=== PATIENT | female | born 1955 | race Caucasian/White ===

== ENCOUNTER 2017-05-28 08:44 | Observation (INO) | payer OTHER ==
--- NOTE | 2017-05-27 16:40 | GHP ---
[f rep st] PREOP HISTORY AND PHYSICAL HISTORY: The patient is a 61-year-old female who presents with right knee pain and swelling and valg us malalignment. She has catching and locking. Most of her pain is lateral. She has a sense of ins tability, decreased range of motion, impaired gait, and limping. The right knee has had an arthrosco py, also Supartz injections in 2012. 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 It has caused her right-sided symptoms and weakness. S he uses an AFO for her right ankle. She has some right-sided weakness. Her x-ray shows significant tricompartment osteoarthritis, most notably [id number] in the lateral compartment. A right total k nee arthroplasty is planned. 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 She has weakness of the right side and right lower extremity, AFO for her right ankle. She is hy pothyroid. MEDICATIONS: Levothyroxine 88 mcg daily, and liothyronine 5 mcg tablets p.o. daily. For her bladder , she uses Myrbetriq 50 mg p.o. daily. She uses meloxicam. ALLERGIES: She has sensitivity to codeine, causing a rash. SOCIAL HISTORY: She is a nonsmoker. REVIEW OF SYSTEMS: Positive from the neurologic standpoint for her right-sided stroke and previous c erebellar lesion, right footdrop, as well as hypothyroid. Endocrine standpoint for hypothyroid. PHYSICAL EXAM: GENERAL: The patient is a well-developed, well-nourished female in no apparent distr ess. HEAD AND NECK: Normocephalic, atraumatic. CHEST: Clear. CARDIOVASCULAR: Regular rate and r hythm. ABDOMEN: Soft. NEUROLOGIC: She is alert and oriented x3. EXTREMITIES: Examination of the right knee shows increased valgus alignment. There is an effusion. She has a flexion contracture, and she is flexing about 110 degrees. Ligamentously, the knee is stable. There is lateral joint mellisa e tenderness. She has hamstring weakness but decent quad strength. IMPRESSION: Right knee osteoarthritis and right lower extremity neurologic issues. PLAN: Right total knee arthroplasty. Benefits and risks of surgery have been reviewed. She underst ands that the risks include infection, damage to blood vessel or nerve, failure or loosening of compo nents, blood clot in the leg or lungs, bleeding and need for transfusion. I reviewed the rigorous la falcon of the rehabilitation, and she has signed a consent form and wishes to proceed. /[id number]/MODL
--- NOTE | 2017-05-28 07:17 | PDHPUP ---
History & Physical Update H&P update statement: This history and physical update is based on an assessment of the patient which was completed after admission or registration (within 24 hours), but prior to the surgery/procedure. H&P update: H&P reviewed & patient examined (no change)
[~2017-05-28 08:44] MED LIST: BUPI/epINEPH/KETOROLAC IU ONE; POVIDONE-IODINE 20 ML in SODIUM CL IRRIG SOLUTION 500 ML IRR ONE; ROPIVACAINE 0.2% 80 MG, EPINEPHrine 0.2 MG, KETOROLAC TROMETHAMINE 30 MG in SYRINGE 0 ML IU ONE; TRANEXAMIC ACID 1,000 MG in NS (SYRINGE) 50 ML IV ONE
[2017-05-28] MEDS ORDERED: ceFAZolin 1 GM/5 ML SYR ONE (09:14)
[2017-05-28] MEDS ORDERED: GABAPENTIN 300 MG CAP PO ONE (09:16)
[2017-05-28] MEDS ORDERED: ACETAMINOPHEN 325 MG TAB PO ONE (09:16)
[2017-05-28] MEDS ORDERED: DEXAMETHASONE 4 MG/ML VIAL IVP ONE (09:16)
[2017-05-28] MEDS ORDERED: ceFAZolin 2 GM/SWFI 2 GM/20 ML SYR IVP ONE (09:16)
[2017-05-28] MEDS ORDERED: LR 1,000 ML IV ONE (09:16)
[2017-05-28] MEDS ORDERED: FAMOTIDINE 20 MG TAB PO ONE (09:16)
[2017-05-28] MEDS ORDERED: MIDAZOLAM 2 MG/2 ML VIAL IVP ONE (09:20)
--- NOTE | 2017-05-28 09:20 | PDANEPAE ---
ANE History of Present Illness R TKA ANE Past Medical History - Cardiovascular History Hx Hypertension: No Hx Arrhythmias: No Hx Chest Pain: No Hx Coronary Artery / Peripheral Vascular Disease: No Hx CHF / Valvular Disease: No Hx Palpitations: No - Pulmonary History Hx COPD: No Hx Asthma/Reactive Airway Disease: No Hx Recent Upper Respiratory Infection: No Hx Oxygen in Use at Home: No Hx Sleep Apnea: No Sleep Apnea Screening Result - Last Documented: Negative - Neurologic History Hx Cerebrovascular Accident: Yes Hx Seizures: No Hx Dementia: No Neurologic History Comment: POST BRAIN SURGERY CEREBELLUM AGE 23 - RESIDUAL R SIDED WEAKNESS - Endocrine History Hx Diabetes: Yes Endocrine History Comment: HYPOTHYROID - Renal History Hx Renal Disorders: No Renal History Comment: OCCAS LACK BLADDER CONTROL - Liver History Hx Hepatic Disorders: No - Neurological & Psychiatric Hx Hx Neurological and Psychiatric Disorders: No - Cancer History Hx Cancer: No - Congenital Disorder History Hx Congenital Disorders: No - GI History Hx Gastrointestinal Disorders: No Gastrointestinal History Comment: ACID REFLUX OCCAS - Other Health History Other Health History: NEG - Chronic Pain History Chronic Pain: Yes (R KNEE) - Surgical History Prior Surgeries: BRAIN SURGERY. KALYN BUNIONECTOMIES. R FOOT SMALL TOE SURGERY. R KNEE SCOPE. UTERINE POLYPS. BLADDER REPAIR. TUBAL LIGATION. OVARIAN CYST REMOVAL. CARPAL TUNNEL L ANE Review of Systems Review of systems is: negative Review of Systems: uses mobility assist device, exercises regularly - Exercise capacity METS (RN): 4 METS ANE Patient History - Allergies Allergies/Adverse Reactions: codeine [Codeine] Allergy (Verified 05/17/17 10:34) Rash - Home Medications Home medications: home medication list seen and reviewed Home Medications: Acetaminophen [Tylenol 325mg (*)] 325 mg PO DAILY PRN 05/17/17 [Last Taken Unknown] Levothyroxine [Synthroid 88 mcg (*)] 88 mcg PO DAILY06 05/17/17 [Last Taken Unknown] Liothyronine Sodium [Cytomel 5 mcg (*)] 10 mcg PO DAILY 05/17/17 [Last Taken Unknown] Meloxicam 15 mg PO DAILY 05/17/17 [Last Taken Unknown] Mirabegron [Myrbetriq] 50 mg PO DAILY 05/17/17 [Last Taken Unknown] - NPO status NPO Status: no food or drink >8 hours - Anes Hx Anes Hx: no prior problems - Smoking Hx Smoking Status: Never smoked - Family Anes Hx Family Anes Hx: none Family Hx Anesthesia Complications: NEG ANE Labs/Vital Signs - Vital Signs Height: 177.8 cm Weight: 106.594 kg ANE Physical Exam - Airway Neck exam: FROM Mallampati Score: Class 2 Mouth exam: normal dental/mouth exam - Pulmonary Pulmonary: no respiratory distress - Cardiovascular Cardiovascular: regular rate and rhythym - ASA Status ASA Status: III ANE Anesthesia Plan Anesthesia Plan: MAC, spinal Regional Anesthesia: adductor canal FNB, POPC/PSR
[2017-05-28] MEDS ORDERED: LIDOCAINE 2% 100 MG/5 ML SYR ONE (10:21)
[2017-05-28] MEDS ORDERED: PROPOFOL/EMULSION 500 MG/50 ML BOTTLE IV ONE (10:21)
[2017-05-28] MEDS ORDERED: fentaNYL 100 MCG/2 ML INJ IVP PRN (11:01)
[2017-05-28] MEDS ORDERED: oxyCODONE IR 5 MG TAB PO PRN (11:01)
[2017-05-28] MEDS ORDERED: DEXAMETHASONE 4 MG/ML VIAL IVP PRN (11:01)
[2017-05-28] MEDS ORDERED: MEPERIDINE 25 MG/ML SYR IVP PRN (11:01)
[2017-05-28] MEDS ORDERED: HYDROmorphONE/DILAUDID 1 MG/ML INJ IVP PRN (11:01)
[2017-05-28] MEDS ORDERED: ACETAMINOPHEN 500 MG TAB PO PRN (11:01)
[2017-05-28] MEDS ORDERED: HYDROCODONE/APAP 5/325 TAB PO PRN (11:01)
[2017-05-28] MEDS ORDERED: NALOXONE HCL 0.4 MG/ML INJ IVP PRN (11:01)
[2017-05-28] MEDS ORDERED: ONDANSETRON 4 MG/2 ML VIAL IVP PRN ×2 (11:01→12:23)
--- NOTE | 2017-05-28 11:05 | POSTANESTH ---
Post Anesthetic Evaluation Cardiovascular Status: Normal, Stable, Similar to Pre-Op Cond Respiratory Status: Normal, Stable, Similar to Pre-op Cond. Level of Consciousness/Mental Status: Can Participate in Eval, Mildly Sleepy, Arousable Pain Control: Adequate, Prn Tx Ordered Nausea/Vomiting Control: Adequate, Prn Tx Ordered Complications Possibly Related to Anesthesia: None Noted
[2017-05-28] MEDS ORDERED: ROPIVACAINE HCL 150 MG/30 ML INJ ONE (11:45)
[2017-05-28] MEDS ORDERED: PROPOFOL 200 MG/20 ML VIAL ONE (11:56)
[2017-05-28] MEDS ORDERED: PROMETHAZINE HCL 25 MG/ML INJ IVP PRN (12:23)
[2017-05-28] MEDS ORDERED: MAGNESIUM HYDROXIDE 30 ML UDCUP PO PRN (12:23)
[2017-05-28] MEDS ORDERED: ONDANSETRON DISINTEGRATING 4 MG TAB PO PRN (12:23)
[2017-05-28] MEDS ORDERED: BISACODYL 10 MG SUPP PR PRN (12:23)
[2017-05-28] MEDS ORDERED: KETOROLAC 30 MG/1 ML SDV IVP PRN (12:23)
[2017-05-28] MEDS ORDERED: METOCLOPRAMIDE 10 MG/2 ML VIAL IVP PRN (12:23)
[2017-05-28] MEDS ORDERED: TEMAZEPAM 15 MG CAP PO PRN (12:23)
[2017-05-28] MEDS ORDERED: diphenhydrAMINE 25 MG CAP PO PRN (12:23)
[2017-05-28] MEDS ORDERED: POLYETHYLENE GLYCOL 3350 17 GM PKT PO PRN (12:23)
[2017-05-28] MEDS ORDERED: DIPHENOXYLATE/ATROPINE LOMOTIL 1 TAB PO PRN (12:23)
[2017-05-28] MEDS ORDERED: LACTULOSE 20 GM/30 ML UDCUP PO PRN (12:23)
[2017-05-28] MEDS ORDERED: PROMETHAZINE HCL 25 MG SUPPR PR PRN (12:23)
[2017-05-28] MEDS ORDERED: CYCLOBENZAPRINE 10 MG TAB PO PRN (12:23)
[2017-05-28] MEDS ORDERED: LR 1,000 ML IV SCH (12:30)
--- NOTE | 2017-05-28 12:53 | GOP ---
[f rep st] OPERATIVE REPORT DATE OF OPERATION: 05/28/2017 SURGEON: Doug Abbott MD SUPERVISOR [employer]: Berto Apodaca [facility], [facility] ANESTHESIOLOGIST: Delfin Cotto MD. PREOPERATIVE DIAGNOSIS: Right knee osteoarthritis. POSTOPERATIVE DIAGNOSIS: Right knee osteoarthritis. PROCEDURE PERFORMED: Right total knee arthroplasty. FINDINGS: SPECIMENS: Excised bone was passed off as specimen. ESTIMATED BLOOD LOSS: About 50 cc. INDICATIONS: The patient presents with right knee pain/swelling. Her history, exam, and x-rays are consistent with advanced right knee tricompartment osteoarthritis, most notably the lateral compartme nt, which is [id number]. This impacts her quality of life, activities of daily living, and she has elected to undergo a right total knee arthroplasty. DESCRIPTION OF PROCEDURE: The patient was taken to the operating room. In a seated position on the OR table, Dr. Cotto provided a spinal anesthetic. She was placed supine. She received IV sedatio n. She received her preoperative antibiotics as well as tranexamic acid. A blanket was placed benea th the right hip to neutralize rotation. The right lower extremity was prepped and draped thoroughly with chlorhexidine. The limb was elevated, exsanguinated, the tourniquet inflated to 300 mmHg. I m mera a longitudinal incision in the midline, dissected through subcutaneous tissue. I used a medial p arapatellar arthrotomy, and the patella was inverted. I removed 9 mm of cartilage and bone to accomm odate the implant, and this was sized to a 35. I drilled peg holes to accommodate the component. Th e component restored the thickness of the patella. The patella was inverted, the knee was flexed, an d I drilled a pilot steam yacht hole in the distal femur. I used an intramedullary device on the femur. Because of her flexion contracture and insufficiency of the lateral condyle, I removed a +4 cut in 5 degrees of valgus. I then extended the knee and used a 9 mm spacer to make a jean carlos on the proximal tibia. I then sized the femur between a 7 and an 8 component. I used a 7 cutting block, and I advanced the b lock anteriorly a couple mm. I then completed the anterior-posterior chamfer cuts and the notch cuts for this bi-cruciate stabilized knee. The size 7 femoral component was an excellent fit. I then pr epared the tibia. I made a saw cut about 1 saw thickness above the line I previously measured with a spacer block. I made sure that this had appropriate posterior slope. I sized this surface at a siz e 5. I dialed in the rotation and completed the tibial prep. All components were removed. The post erior aspect of the knee was cleaned up. All these surfaces were jet lavaged with antibiotic solutio n. All the components were cemented. I went through a series of trial reductions and found that a 1 0 mm spacer provided appropriate soft tissue balance and stability. The 10 mm crosslinked poly liner was snapped into place. I used a combination of antibiotic irrigation and a Betadine rinse. The to urniquet was let down after about 1 hour and 10 minutes or so. I closed the arthrotomy with interrup drea [id number] sutures of 0 Mersilene, the subcutaneous tissue with 2-0 Monocryl, and the skin w ith jude. The wounds were dressed with Betadine-soaked Adaptic, 4x4s, sterile Webril, and a long- leg DREA stocking was applied. COMPLICATIONS: There were no complications. DRAINS: No drains. COUNTS: All counts were correct. DISPOSITION: The patient was taken in stable condition to recovery. My certified surgical assistant was a medical necessity for this knee replacement. SUMMARY OF COMPONENTS: This is a [employer] knee, all components cemented. The femur is Oxinium and the liner is crosslinked polyethylene. The femur is size 7, the tibia size 5, the art icular insert is 10 mm thick, and the patella is a 35. /[id number]/MODL
[2017-05-28] MEDS ORDERED: ceFAZolin 2 GM/DEXTROSE 100 ML IV SCH (14:00)
[2017-05-28] MEDS: ACETAMINOPHEN 325 MG TAB PO SCH ×2 (17:43→23:23)
[2017-05-28] MEDS: ceFAZolin 2 GM/SWFI 2 GM/20 ML SYR IVP SCH (18:26)
[2017-05-28] MEDS: ASPIRIN 325 MG TAB PO SCH (20:11)
[2017-05-28] MEDS: oxyCODONE IR 5 MG TAB PO PRN (20:11)
[2017-05-28] MEDS: FAMOTIDINE 20 MG TAB PO SCH (20:11)
[2017-05-28] MEDS: SENNOSIDES/DOCUSATE SODIUM TAB PO SCH (20:12)
[2017-05-29] MEDS: ceFAZolin 2 GM/SWFI 2 GM/20 ML SYR IVP SCH (02:14)
[2017-05-29] MEDS: oxyCODONE IR 5 MG TAB PO PRN ×3 (02:20→12:31)
[2017-05-29] MEDS: ACETAMINOPHEN 325 MG TAB PO SCH ×2 (05:27→12:29)
[2017-05-29] MEDS ORDERED: LEVOTHYROXINE 88 MCG TAB PO SCH (06:00)
--- NOTE | 2017-05-29 07:41 | SOAPPROG ---
SOAP Progress Note Assessment/Plan: Assessment: 05/29/17 POD# 1 L TKA, pain controlled, Hct 40, has been up Plan: 05/29/17 07:39 PT, ok for D/C, has RX for oxy, celebrex, asa Objective: Vital Signs Temp Pulse Resp BP Pulse Ox 36.5 C 72 16 111/44 L 96 05/29/17 04:00 05/29/17 04:00 05/29/17 04:00 05/29/17 04:00 05/29/17 04:00 Laboratory Results 05/29/17 04:35 05/28/17 05/29/17 05/30/17 05:59 05:59 05:59 Intake Total 3080 Output Total 1050 Balance 2030 ICD10 Worksheet Patient Problems: Problems Problem Status Onset Osteoarthritis of left knee Acute - ICD10 Problem Qualifiers (1) Osteoarthritis of left knee
--- NOTE | 2017-05-29 07:50 | PDIAF ---
- Diagnosis Diagnosis: left knee osteoarthritis Code Status: Full Code - Medication Management Discharge Medications: Medications to Continue on Transfer Acetaminophen [Tylenol 325mg (*)] 325 mg PO DAILY PRN 05/17/17 [Last Taken Unknown] Levothyroxine [Synthroid 88 mcg (*)] 88 mcg PO DAILY06 05/17/17 [Last Taken Unknown] Liothyronine Sodium [Cytomel 5 mcg (*)] 10 mcg PO DAILY 05/17/17 [Last Taken Unknown] Meloxicam 15 mg PO DAILY 05/17/17 [Last Taken Unknown] Mirabegron [Myrbetriq] 50 mg PO DAILY 05/17/17 [Last Taken Unknown] Aspirin [Aspirin 325 mg (*)] 325 mg PO DAILY tab 05/29/17 [Last Taken Unknown] celeCOXIB [Celebrex (*)] 200 mg PO DAILY #30 cap 05/29/17 [Last Taken Unknown] oxyCODONE IR [Oxycodone Ir (*)] 5 - 10 mg PO Q3HRS PRN #30 tab 05/29/17 [Last Taken Unknown] Discharge Medications: Refer to the Discharge Home Medication list for PRN reason. - Orders Services needed: Physical Therapy Diet Recommendation: no restrictions on diet Diet Texture: Regular Texture Diet Jacob Stockings Discontinue Date: 2 weeks Wound Care Instructions: keep wound covered, clean and dry - Follow Up Care Current Providers and Referrals: Li Snow DO [Primary Care Provider] -
[2017-05-29 08:10] VITALS: BP 97/71
[2017-05-29] MEDS: ASPIRIN 325 MG TAB PO SCH (08:14)
[2017-05-29] MEDS: FAMOTIDINE 20 MG TAB PO SCH (08:15)
[2017-05-29] MEDS: SENNOSIDES/DOCUSATE SODIUM TAB PO SCH (08:15)
[2017-05-29] MEDS ORDERED: LIOTHYRONINE SODIUM 5 MCG TAB PO SCH (09:00)
[2017-05-29] MEDS ORDERED: Mirabegron [Myrbetriq] 50 MG PO SCH (09:00)
--- NOTE | 2017-05-29 13:47 | ASMTCMCOM ---
CM Note CM Note Notes: Pt medically stable for d/c with [facility] PT. Orders to be obtained via [employer]. Date Signed: 05/29/2017 01:47 PM Electronically Signed By:DMITRY Burns
--- NOTE | 2017-05-29 13:48 | ASDISCHSUM ---
Discharge Information Plan Status:Home with Home Health Medically Cleared to Leave: Discharge Date:05/29/2017 01:07 PM CM D/C Disposition:Home Health Service ADT D/C Disposition:[id number] Projected Discharge Date:05/29/2017 11:00 AM Transportation at D/C:Family Discharge Delay Reason: Follow-Up Date:05/29/2017 11:00 AM Discharge Slot: Final Diagnosis: Placement Information Referral Type:*Home Health Care Services Referral ID:[id number] Provider Name:[facility] Address 1:[address] [place] [address] Address 2: City:[place] Selection Factors: State:[place] Patient Contact Information Contact Name:ALFA Relationship: Address:[address] [place] [address] City:[place] Phone: State/Zip Code:[place] [phone] Email: Financial Information Financial Class:Medicare Advantage Plans Primary Plan Desc:[employer] MEDICARE Primary Plan Number:[id number] Secondary Plan Desc: Secondary Plan Number: Assessment Information [facility] CM Progress Note CM Note CM Note Notes: Pt medically stable for d/c with [facility] PT. Orders to be obtained via [employer]. Date Signed: 05/29/2017 01:47 PM Electronically Signed By:DMITRY Burns Intervention Information
== END 2017-05-29 13:07 | disposition home health service (06) ==
LOC: F3N 08:44
PROVIDERS: ADMIT Orthopaedic Surgery; ATTEND Orthopaedic Surgery
PROC: 0SRC0J9 Replacement of Right Knee Joint with Synthetic Substitute, Cemented, Open Approach (ICD-10-PCS; principal; 2017-05-28 10:45)
DX: M17.11 Unilateral primary osteoarthritis, right knee (principal); E03.9 Hypothyroidism, unspecified; I69.851 Hemiplegia and hemiparesis following other cerebrovascular disease affecting right dominant side; M19.90 Unspecified osteoarthritis, unspecified site
CPT/HCPCS: 27447; 73560; 88311; 97116; 97161; 97165; 97530; C1713; C1776; G0378; G8987; G8988; G8989; J0171; J0690; J1100; J1885; J2001; J2250; J2704; J2795

== ENCOUNTER → 2018-05-15 | Outpatient (CLI) | payer OTHER | LOC: EMCIMAGING 12:01 | PROVIDERS: ATTEND Family Medicine | DX: Z12.31 Encounter for screening mammogram for malignant neoplasm of breast (principal); Z13.820 Encounter for screening for osteoporosis; M85.89 Other specified disorders of bone density and structure, multiple sites; E03.9 Hypothyroidism, unspecified; Z78.0 Asymptomatic menopausal state; Z87.81 Personal history of (healed) traumatic fracture | CPT/HCPCS: 77067-PN; 77080-PN ==